=== PATIENT | male | born 1965 | race Caucasian/White ===

== ENCOUNTER 2018-08-06 16:09 | Emergency (ER) | payer SELFPAY ==
[~2018-08-06] VITALS: Ht 175.3 cm; Wt 94.5 kg
[2018-08-06 16:19] VITALS: Ht 175.3 cm; Wt 94.5 kg
[2018-08-06] MEDS ORDERED: AUGMENTIN 875-11 TAB PO (20:04)
[2018-08-06] MEDS ORDERED: TORADOL10 MG PO (20:04)
[2018-08-06 20:20] VITALS: BP 138/85
== END 2018-08-06 20:20 | disposition home or self-care (01) ==
LOC: D.ER 16:09
DX: S61.012A Laceration without foreign body of left thumb without damage to nail, initial encounter (principal); W54.0XXA Bitten by dog, initial encounter; Y93.89 Activity, other specified; Y92.019 Unspecified place in single-family (private) house as the place of occurrence of the external cause

== ENCOUNTER 2018-08-27 15:29 | Emergency (ER) | payer MEDICAID ==
[~2018-08-27] VITALS: Ht 175.3 cm; Wt 90.9 kg
[~2018-08-27 15:29] MED LIST: AUGMENTIN 875-11 TAB PO; TORADOL10 MG PO
[2018-08-27 15:45] VITALS: BP 139/88; Ht 175.3 cm; Wt 90.9 kg
== END 2018-08-27 16:45 | disposition home or self-care (01) ==
LOC: D.ER 15:29
DX: S61.012D Laceration without foreign body of left thumb without damage to nail, subsequent encounter (principal); X58.XXXD Exposure to other specified factors, subsequent encounter; Z48.02 Encounter for removal of sutures

== ENCOUNTER 2018-11-30 10:23 | Emergency (ER) | payer OTHER ==
[~2018-11-30] VITALS: Ht 175.3 cm; Wt 95.9 kg
[2018-11-30 10:33] VITALS: Ht 175.3 cm; Wt 95.9 kg
[2018-11-30] MEDS ORDERED: NAPROSYN500 MG PO (11:40)
[2018-11-30 11:58] VITALS: BP 148/86
== END 2018-11-30 12:00 | disposition home or self-care (01) ==
LOC: D.ER 10:23
DX: M25.512 Pain in left shoulder (principal)